=== PATIENT | female | born 1985 | race Caucasian/White ===

== ENCOUNTER 2016-12-19 19:40 | Inpatient (IN) | payer OTHER ==
[~2016-12-19] VITALS: Ht 152.4 cm; Wt 55.8 kg
--- NOTE | ~2016-12-19 | P ---
[facility] [place] [address] PROCEDURE REPORT Name: SHIKHA MO Room #: 409-P [facility] IN M.R.#: [id number] Admission: 12/20/16 Attend Phys: Gael Mcmahan Discharge: 12/22/16 Date of : 81 Report #: [id number] THIS REPORT FOR: //name// CC: [facility] physician/PCP Cesario Hall BRIEF HISTORY: The patient is a 31-year-old woman, who presented to [facility] with 6 weeks of abdominal pain. She reports a 25-pound weight loss. She describes severe epigastric pain. She said she cannot eat. She states food sticks and hangs up. It is not clear to me whether this is dysphagia or gastroparesis-type symptoms. PREOPERATIVE DIAGNOSES: Abdominal pain, nausea, and weight loss. POSTOPERATIVE DIAGNOSES: Moderately severe diffuse gastritis, mostly body and fundus of the stomach. MEDICATIONS: Deep sedation with propofol per anesthesia. SPECIMEN: Biopsies of gastritis. ESTIMATED BLOOD LOSS: 3 mL. PROCEDURE: EGD with biopsy. FINDINGS: Prior to propofol sedation, procedure of upper endoscopy discussed with the patient through a nurse receptionist as well as potential risks and its complications. She indicates she understands and desires to proceed. DESCRIPTION OF PROCEDURE: With the patient in the left lateral decubitus position, the Purkinjei video endoscope was inserted into the cervical esophagus under direct vision without difficulty. Examination of this organ through its entire length revealed normal esophageal mucosa down the squamocolumnar junction. Squamocolumnar junction was inspected and noted to be unremarkable. I did not see any strictures, rings, or mass lesions. A significant hiatus hernia was not seen. Scope was advanced in the stomach, which was examined on end view as well as retroflexed views. First of all, there were no retained solids or liquids in the stomach to suggest gastroparesis or outlet obstruction. Examination of the gastric mucosa revealed it to be intact throughout. However, there was moderately severe gastritis, more so on the fundus and the body of the stomach than in the antrum. There was some mucosal edema. However, the mucosa was intact. I did not see ulcers or erosions. I did not see any bleeding lesions. The pylorus was normal. There was no evidence of pyloric stenosis or obstruction. The duodenal bulb was normal. The duodenal mucosa was normal and there was a normal villous pattern. The scope was advanced to the third portion of the duodenum. Again, the duodenal mucosa was normal. There [facility] [address] [place] [address] PROCEDURE REPORT Name: SHIKHA MO Room #: 409-P DIS IN M.R.#: [id number] Admission: 12/20/16 Attend Phys: Gael Mcmahan Discharge: 12/22/16 Date of : 81 Report #: [id number] was no evidence of obstruction. There was no fluid or solids within the duodenum. In the second portion of the duodenum, we saw normal-appearing duodenal papilla with clear yellow bile streaming from it. At that point, the scope was slowly withdrawn and careful circumferential views were obtained. Biopsies were obtained of the body and fundus of the stomach. Scope was withdrawn. The patient tolerated the procedure well. Subsequently, she was dilated with passage of 50-Korean Hirsch dilator. There was no resistance. DISPOSITION: The patient with symptoms of abdominal pain, inability to eat for 6 weeks as well as possibly dysphagia or gastroparesis-type symptoms. I do see a moderately severe gastritis, mostly in the body and the antrum. If I understand correctly, she had blood work for H. pylori prior to admission, which she reports was negative. We obtained additional biopsies today. I did not see ulcers. History is very impressive; however, labs are very unremarkable. In particular with a 25-pound weight loss and not eating for 6 weeks, she has a serum albumin of 4.7, which would be unusual. However, the CT does reveal edema, which was nonspecific on the CT scan. Potentially, she had some sort of gastroenteritis. She could have acute gastritis and even acute H. pylori gastritis, which may cause symptoms. I did not see evidence of outlet obstruction. I did not see a stricture, but she is empirically dilated due to her complaints. We will follow up on biopsies. Would treat her with a PPI at this point in time. Consider also an ultrasound of the gallbladder if the epigastric pain persists. We will advance diet at this time. <ELECTRONICALLY SIGNED> By: Cesario Campos MD 12/24/16 1228 1432 [id number] Cesario Campos MD /nt
--- NOTE | ~2016-12-19 | HC ---
[facility] [address] [address] CONSULTATION Name: MURRAY KRYSTADEMETRISHIKHA Room #: 409-P [facility] IN M.R.#: [id number] Admission: 12/20/16 Attend Phys: Gael Mcmahan Discharge: 12/22/16 Date of : 81 Report #: [id number] THIS REPORT FOR: //name// CC: [facility] physician/PCP Cesario Hall CONSULTATION REASON FOR CONSULTATION: This is a 31-year-old woman with abdominal pain and 25-pound weight loss over the past 6 weeks. HISTORY OF PRESENT ILLNESS: The patient speaks Irish, but I converse with her through a close family friend who translated for her. She reports that she developed epigastric pain in the past 6 weeks, it has progressively got worse. She also feels like her food goes down, but it sticks, it does not go anywhere. She has not had vomiting. She does report some nausea. She did not any fever or chills. She has seen some sort of clinic. They have related that test for H. pylori was negative. She denies use of nonsteroidals. She was given Prevacid, but it did not help. Her bowel movements have been regular, she has not had bloody stools. She presented to the Emergency Room due to persistent symptoms. A CT scan of the abdomen and pelvis was done and there is nonspecific edema noted. No specific abnormalities were identified. Laboratory studies were obtained, white count 8, hemoglobin 15.3, and platelet count . Chemistry revealed normal electrolytes. Creatinine 0.8, BUN of 12, and liver function studies were normal. Interestingly, albumin was 4.7 in spite of reported weight loss. Serum test was negative. PAST MEDICAL HISTORY: She reports she is otherwise in good health. PAST SURGICAL HISTORY: and tubal ligation. MEDICATIONS: Prevacid, nonsteroidals. ALLERGIES: No known drug allergies. FAMILY HISTORY: Father had colon cancer when he was 60. REVIEW OF SYSTEMS: She reports weight loss only. No fever or chills. PULMONARY: No cough, pneumonia or tuberculosis. CARDIOVASCULAR: No chest pain, chest tightness. GASTROINTESTINAL: As noted above, no rectal bleeding, no change in bowel habits. PHYSICAL EXAMINATION: [facility] [address] [place] [address] CONSULTATION Name: SHIKHA MO Room #: 409-P [facility] IN M.R.#: [id number] Admission: 12/20/16 Attend Phys: Gael Mcmahan Discharge: 12/22/16 Date of : 81 Report #: [id number] GENERAL: Well-developed, well-nourished, pleasant woman who is awake, alert and oriented, no acute distress. VITAL SIGNS: Blood pressure 125/83 and pulse of 96. HEENT: Anicteric. Pupils are equal and round. Oropharynx is clear. NECK: Supple. CHEST: Clear. HEART: Regular rate and rhythm, normal S1 and S2. ABDOMEN: Normal bowel sounds, soft, and nontender without hepatosplenomegaly or masses. Specifically, there is no epigastric tenderness, which reports her pain. RECTAL: Not done. EXTREMITIES: Without cyanosis, clubbing, or edema. ASSESSMENT: 1. Epigastric pain. 2. Nausea. 3. A 25-pound weight loss. 4. Questionable dysphagia. 5. Mild ascites noted on CT. PLAN: EGD. <ELECTRONICALLY SIGNED> By: Cesario Campos MD 12/24/16 1228 1415 2213 Cesario Campos MD /nt
--- NOTE | ~2016-12-19 | HC ---
[facility] [place] [address] CONSULTATION Name: SHIKHA MO Room #: 409-P ADM IN M.R.#: [id number] Admission: 12/20/16 Attend Phys: Gael Mcmahan Discharge: Date of : 81 Report #: [id number] THIS REPORT FOR: //name// CC: [facility] physician/PCP Cesario Hall DATE OF SERVICE: 12/21/2016 ATTENDING PHYSICIAN: Dr. Mcmahan. REASON FOR CONSULTATION: Abdominal pain. HISTORY OF PRESENT ILLNESS: This is a 31-year-old female patient who has had difficulty with postprandial right upper quadrant abdominal pain and nausea with significant weight loss of 25 pounds over the past 6 weeks. She denies fever or chills. She underwent a CT of the abdomen and pelvis which showed ascites with no free intraperitoneal air or other acute findings, debris versus tiny noncalcified stones were seen within the gallbladder. GI was consulted and the patient underwent an EGD, which revealed moderate to severe gastritis. The patient underwent Hirsch dilation as well. A PIPIDA scan was performed yesterday, which revealed a 9% gallbladder ejection fraction. The patient reports significant reproduction of her symptoms with the study. I have been asked to see her for further evaluation and treatment. PAST MEDICAL HISTORY: Denies. PAST SURGICAL HISTORY: times 1. MEDICATIONS: No routine medications; please see the electronic medical record for lifting of the patient's current medications. ALLERGIES: No known drug allergies. FAMILY HISTORY: Significant for hypertension and diabetes. Her father was diagnosed with colon cancer at 60 years old. SOCIAL HISTORY: The patient denies use of tobacco, alcohol or illicit drugs. She is and accompanied by her /significant other. She has three children. 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 REVIEW OF SYSTEMS: As per history of present illness. In addition: GENERAL: The patient denies fever or chills. Reports unintentional weight loss of 25 pounds. HEENT: Denies changes in taste, vision, hearing, or smell. [facility] [address] [place] [address] CONSULTATION Name: SHIKHA MO Room #: 409-P [facility] IN M.R.#: [id number] Admission: 12/20/16 Attend Phys: Gael Mcmahan Discharge: Date of : 81 Report #: [id number] RESPIRATORY: Denies shortness of breath, COPD or asthma. CARDIOVASCULAR: Denies palpitations. Denies edema. GASTROINTESTINAL: As per history of present illness. Denies bright red blood per rectum. GENITOURINARY: Denies dysuria, urgency, increased urinary frequency or hematuria. MUSCULOSKELETAL: Denies myalgia, arthralgia or arthritis. NEUROLOGIC: Denies headaches, numbness or tingling. PSYCHIATRIC: Denies depression, anxiety or suicidal ideations. SKIN AND INTEGUMENTARY: Denies new skin lesions, rashes, or moles. ENDOCRINE: Denies polydipsia, polyuria, heat or cold intolerance. HEMATOLOGIC: Denies easy bleeding, bruising or anemia. All other review of systems is negative. PHYSICAL EXAMINATION: VITAL SIGNS: Temperature 36.8 degrees Celsius, blood pressure 94/59, pulse 70, respirations 18. GENERAL: This is a well-developed, well-nourished, healthy appearing 31-year-old female patient in no acute distress. HEENT: Atraumatic, normocephalic with moist mucosal membranes. She has no scleral icterus. NECK: Supple, no appreciable lymphadenopathy. Trachea is midline. CHEST: Clear bilaterally. No crackles or wheezes. CARDIOVASCULAR: Regular rate and rhythm. ABDOMEN: Soft and nondistended with minimal tenderness to palpation in the right upper quadrant. She has a negative Hartman's sign, no rebound or guarding. No palpable masses, no appreciable hepatosplenomegaly. No appreciable hernias. GENITOURINARY: Normal external female genitalia. EXTREMITIES: No clubbing, cyanosis or edema. NEUROLOGIC: Cranial nerves 2-12 grossly intact. PSYCHIATRIC: Normal mood and affect. SKIN AND INTEGUMENTARY: No acute inflammatory changes, rashes, lesions or jaundice is present. LABORATORY DATA: CBC shows a white blood cell count of 8.0, hemoglobin 15.3, hematocrit 44.0 and platelets 208 on 12/19/2016. Her electrolytes show sodium of 138, potassium 3.6, chloride 103, CO2 of 22, BUN 12, creatinine 0.8, and glucose 96. Her liver function tests were also normal as was her lipase on 12/19/2016. Urinalysis showed trace ketones, trace blood and TB tests are pending. RADIOLOGIC STUDIES: CT and PIPIDA scan findings are as noted above. IMPRESSION AND PLAN: This is a 31-year-old female patient with postprandial right upper quadrant abdominal pain and nausea with a 25-pound weight loss over [address] [address] CONSULTATION Name: SHIKHA MO Room #: 409-P ADM IN M.R.#: [id number] Admission: 12/20/16 Attend Phys: Gael Mcmahan Discharge: Date of : 81 Report #: [id number] the past 6 weeks. She has biliary dyskinesia as evidence by her PIPIDA scan. In addition to this, she had significant reproduction of her symptoms. She would benefit from cholecystectomy. We discussed the pathophysiology and natural history of biliary disease as well as the treatment alternatives and surgical options. The patient will be scheduled for laparoscopic cholecystectomy at the next earliest availability. She understands the risks, benefits, and expectations of the operation. Conversation with the patient was undertaken through her significant other who translated the discussion. I sincerely appreciate the opportunity to participate in the care of this patient and will leave further recommendations and orders in the electronic medical record as appropriate. <ELECTRONICALLY SIGNED> By: Mega Huang MD, FACS 12/22/16 0735 1150 [id number] Mega Huang MD, FACS /nt
--- NOTE | ~2016-12-19 | EKG ---
[place] [address] [facility] [place] [address] ELECTROCARDIOGRAM REPORT Name: SHIKHA MO Room #: 409-P [facility]..#: [id number] Admission: 12/19/16 Attend Phys: Sixto Hall MD Discharge: Date of : 81 Report #: [id number] THIS REPORT FOR: //name// [facility] ED Test Date: 2016-12-19 Test Time: 20:21:48 Pat Name: SHIKHA FARMER Department: Room: 409 Gender: F [employer] Mechanical: SUJIT : 1985 Requested By: Moe Soto Order Number: [id number] MD: Fernando Alva Measurements Intervals [place] Rate: 77 P: 80 FL: 118 QRS: 83 QRSD: 100 T: 64 QT: 423 QTc: 479 Interpretive Statements Sinus rhythm No significant abnormality No previous ECG available for comparison Electronically Signed On 12-20-2016 9:03:50 CDT by Fernando Alva [email or web address] <ELECTRONICALLY SIGNED> By: Fernando Alva MD, [facility] 12/20/16902 20 20 Fernando Alva MD, FACC /EPI
--- NOTE | ~2016-12-19 | S ---
[facility] [place] [address] SURGICAL PATH RPT PROCEDURE Name: SHIKHA MO Room #: 409-P DIS IN M.R.#: [id number] Admission: 12/20/16 Date of : 81 Discharge: 12/22/16 Report #: [id number] Path Case #: [id number] PATHOLOGY REPORT COLLECTION DATE: 12/21/2016 RECEIVED DATE: 12/21/2016 SUBMITTING PHYS: Dr. Mega Huang OTHER PHYS: Dr. Sixto Campos SPECIMEN(S) RECEIVED: A.Gallbladder * * * * * * * * * * * * FINAL DIAGNOSIS: A. "Gallbladder", cholecystectomy: - Mild chronic cholecystitis. - Lymph node with hyperplasia. (1 node) (CLW; 12/23/16) PATHOLOGIST: Elida Zavaleta M.D. REPORT ELECTRONICALLY SIGNED BY: Elida Zavaleta M.D. DATE/TIME: 12/23/2016 21:55 * * * * * * * * * * * * GROSS PATHOLOGY: Received in formalin labeled "Shikha Mo, gallbladder," is an explanted 2 x 2.4 x 1.2 cm, previously opened gallbladder with wrinkled, shiny, pale, bluepale green serosal surfaces. The gallbladder is opened to show a tangreen, velvety, bile-stained mucosa and an average wall thickness of 0.1 cm. Calculi are not present and no masses are noted grossly. Neon Glass Bender sections from the body and fundus are submitted along with the proximal margin in cassette A1. (SNA; 12/22/2016) CLINICAL HISTORY: Cholecystitis INITIAL CPT CODE(S): A; 94142 Professional services performed by [facility] at [facility] [address] [place] [address] [facility] [address] [place] [address] SURGICAL PATH RPT PROCEDURE Name: TERRI CHAPARROSHIKHA MOSQUERA Room #: 409-P DIS IN M.R.#: [id number] Admission: 12/20/16 Date of : 81 Discharge: 12/22/16 Report #: [id number] Path Case #: [id number] Technical services performed by [facility] at [address] [place] [address], [facility] [place] [facility] [address] [address]. [place] [address] PHONE: [phone] DIRECTOR: Saw Johnston M.D. * * * END OF REPORT * * *
--- NOTE | ~2016-12-19 | O ---
[facility] [place] [address] OPERATIVE REPORT Name: TERRI FARMERSHIKHA Room #: 409-P ADM IN M.R.#: [id number] Admission: 12/20/16 Attend Phys: Sixto Hall MD Discharge: Date of : 81 Report #: [id number] THIS REPORT FOR: //name// CC: [facility] physician/PCP Cesario Hall DATE OF SERVICE: 12/21/2016 SURGEON: Mega Huang MD. PROFESSIONAL SERVICES CONSULTANT: RAMIRO Ferrari. PREOPERATIVE DIAGNOSIS: Biliary colic with dyskinesia. POSTOPERATIVE DIAGNOSES: 1. Biliary colic with dyskinesia. 2. Chronic cholecystitis. PROCEDURE: Laparoscopic cholecystectomy with intraoperative cholangiogram. ANESTHESIA: General endotracheal anesthesia and local anesthetic. ESTIMATED BLOOD LOSS: 5 mL. SPECIMEN: Gallbladder. COMPLICATIONS: None appreciated. INDICATIONS FOR PROCEDURE: This is a 31-year-old female patient with a 6-week history of postprandial right upper quadrant abdominal pain and nausea with a 25-pound weight loss. Her imaging studies have been negative other than a PIPIDA scan showing a 9% ejection fraction. She presents now for laparoscopic cholecystectomy with cholangiogram. OPERATIVE FINDINGS: Upon entrance into the abdominal cavity, the liver, stomach, small bowel, and colon in the surrounding area appeared otherwise normal. The gallbladder itself did not appear to be acutely inflamed. Chronic inflammatory changes were present with omental adhesions to the gallbladder. The critical view consisting of the cystic artery, cystic duct, and lower edge of the gallbladder forming a window through which the liver was visible was seen prior to clipping the cystic duct for cholangiogram. Cholangiogram showed contrast within the entire biliary tree with no dilatation, and no filling defects. Contrast flowed freely into the duodenal sweep. At the conclusion of the operation, three clips remained on the cystic duct stump. No other significant intra-abdominal pathology was identified. The gallbladder was [address] [address] OPERATIVE REPORT Name: TERRI FARMERSHIKHA Room #: 409-P ADM IN .R.#: [id number] Admission: 12/20/16 Attend Phys: Sixto Hall MD Discharge: Date of : 81 Report #: [id number] opened on the backtable and chronic inflammatory changes were seen. No gallstones were present. DESCRIPTION OF PROCEDURE IN DETAIL: After the benefits and risks of the procedure were explained to the patient which include but are not limited to risks of bleeding, infection, injury to the biliary tree, injury to adjacent organs, risk of DVT, pulmonary embolus, postoperative pain and postoperative expectations informed consent was obtained. The patient was identified in the preoperative holding area. The patient was then given IV antibiotics as documented in the chart to comply with the SCIP protocol. The patient was taken to the operating room and was placed in the supine position. The patient was given IV sedation and was intubated without incident. A time-out was performed to correctly identify the patient and procedure. SCDs were placed on the patient's bilateral lower extremities. The patient's abdomen was then prepped and draped in the standard sterile fashion with ChloraPrep. Local anesthetic was infiltrated into the skin and subcutaneous tissue. A periumbilical incision was made with a #15 blade scalpel. The 11-mm Visiport was then placed intraperitoneally with the 10-mm 0-degree angled laparoscope. After confirmation of placement within the peritoneal cavity, the scope was changed to a 10-mm 30 degree angled laparoscope and pneumoperitoneum was achieved with insufflation of carbon dioxide. The patient was placed in the reverse Trendelenburg position, rotated to the patient's left. A subxiphoid 5 mm and right subcostal 5 mm ports times 2 were placed under direct visualization after local anesthetic was infiltrated into the skin and subcutaneous tissue and appropriately sized incisions were made. Operative findings are as noted above. The dome of the gallbladder was retracted in a cephalad direction. The gallbladder peritoneum was scored medially and laterally after takedown of the adhesions to the gallbladder. Dissection was carried out around the cystic artery and cystic duct to identify each structure as entering directly into the gallbladder. The critical view as described above was seen. A Hemoclip was then placed on the cystic duct at its junction with the gallbladder. A ductotomy was made and the cholangiocatheter was passed into the cystic duct. A clip was placed, contrast was then injected and cholangiogram findings are as noted above. The cholangiocatheter was then removed and the cystic duct was triply clipped distal to the ductotomy. The duct was divided at the ductotomy site with the ultrasonic scalpel. The cystic artery was then divided with the ultrasonic scalpel as well. The gallbladder was then dissected off the liver bed with and after fully removing the gallbladder, it was placed in an Endopouch and removed through the periumbilical port site. The abdominal cavity was then reentered. Other operative findings are as noted above. The liver bed was made hemostatic with electrocautery. After ensuring final hemostasis and ensuring that the clips were secure, the periumbilical port site fascial opening was closed with a simple interrupted 0 PDS suture under direct visualization using the Gigi Cintron laparoscopic fascial [address] [address] OPERATIVE REPORT Name: SHIKHA MO Room #: 409-P [facility] IN M.R.#: [id number] Admission: 12/20/16 Attend Phys: Sixto Hall MD Discharge: Date of : 81 Report #: [id number] closure device. The ports were removed and the abdominal cavity was desufflated. The fascial suture had been tied under direct visualization to ensure no incorporation of intraabdominal content. Interrupted subcuticular 4-0 Monocryl sutures and Dermabond were used to close the skin. The patient tolerated the procedure well. The patient was awakened, extubated and taken to the recovery room in stable condition with no apparent intraoperative complications. <ELECTRONICALLY SIGNED> By: Mega Huang MD, FACS 12/21/16 1609 1516 1554 Mega Huang MD, FACS /nt
--- NOTE | ~2016-12-19 | S ---
[facility] [place] [address] SURGICAL PATH RPT PROCEDURE Name: TERRI HILLSHIKHA GALEANA Room #: 409-P DIS IN M.R.#: [id number] Admission: 12/20/16 Date of : 81 Discharge: 12/22/16 Report #: [id number] Path Case #: [id number] PATHOLOGY REPORT COLLECTION DATE: 12/20/2016 RECEIVED DATE: 12/21/2016 SUBMITTING PHYS: Dr. Cesario Campos OTHER PHYS: Dr. Sixto Hall SPECIMEN(S) RECEIVED: A.Gastritis * * * * * * * * * * * * FINAL DIAGNOSIS: Gastric mucosa, gastritis, endoscopic biopsy: - Moderate active gastritis along with features of reactive gastropathy. - Negative for intestinal metaplasia or atrophy. - Negative for Helicobacter pylori. COMMENT: Helicobacter pylori immunohistochemical stain performed on block A1 - negative. An intensive search for Helicobacter pylori-like organisms is negative. Absence of such organisms does not entirely exclude the possibility and may be due to sampling or prior treatment. Other possible etiologies may include chemical gastritis, autoimmune gastritis, gastritis associated with inflammatory bowel disease. Please correlate with clinical, endoscopic, and microbiological studies if clinically indicated. PATHOLOGIST: Eloina Ware M.D. REPORT ELECTRONICALLY SIGNED BY: Eloina Ware M.D. DATE/TIME: 12/22/2016 17:10 * * * * * * * * * * * * GROSS PATHOLOGY: Received in formalin labeled "Terri BarrettShikha villagran, gastritis r/o H. pylori," are 7 segments of chen soft tissue measuring 3.0 x 0.4 x 0.3 cm in aggregate dimensions and ranging from 0.2 to 0.7 cm in maximum dimension. The specimen is submitted entirely in cassette A1. (HERIBERTO; 12/21/2016) CLINICAL HISTORY: Abdominal pain [facility] [address] [address] SURGICAL PATH RPT PROCEDURE Name: TERRI BARRETTSHIKHA VILLAGRAN Room #: 409-P DIS IN M.R.#: [id number] Admission: 12/20/16 Date of : 81 Discharge: 12/22/16 Report #: [id number] Path Case #: [id number] INITIAL CPT CODE(S): A; 18097, 77662 Professional services performed by [facility] at [address] , [place] [address] Technical services performed by [facility] at [address] [place] [address], [place] [address]. [facility] [address] [place] [address] PHONE: [phone] DIRECTOR: Saw Johnston M.D. * * * END OF REPORT * * *
[2016-12-19 19:48] VITALS: BP 147/90
[2016-12-19] MEDS ORDERED: OMEPRAZOLE 20 M20 M1 PO (20:05)
[2016-12-19 20:18] LABS: URINE BILIRUBIN NEGATIVE (Negative); URINE BLOOD TRACE (Negative); URINE COLOR YELLOW; URINE GLUCOSE-RANDOM* NEGATIVE (Negative); URINE KETONES TRACE (Negative); URINE LEUKOCYTES-REFLEX NEGATIVE (Negative); URINE PROTEIN (DIPSTICK) NEGATIVE (Negative); URINE SPECIFIC GRAVITY <= 1.005 (1.003-1.035); URINE UROBILINOGEN 0.2 E.U./dl (0.2-1.0)
[2016-12-19 20:21] LABS: ABSOLUTE NEUTROPHILS 5.3 thou/uL (1.4-8.2); BASOPHILS 0.5 % (0.0-2.0); EOSINOPHILS 0.5 % (0.0-3.0); HEMOGLOBIN 15.3 gm/dL (12.0-15.0); LYMPHOCYTES 25.5 % (24.0-44.0); MCH 29.9 pg (26.0-34.0); MCHC 34.7 g/dL (28.0-37.0); MCV 86.1 fL (80.0-100.0); MONOCYTES 6.6 % (1.0-8.0); PLATELET COUNT 208 thou/uL (150-400); POLYS 66.9 % (36.0-66.0); RBC 5.11 mil/uL (4.20-5.00); RDW 13.3 % (10.5-14.5)
[2016-12-19 20:25] LABS: MANUAL DIFF NO
[2016-12-19 20:32] LABS: ANION GAP 13 mmol/L (7-16); BUN 12 mg/dL (7-18); CALCIUM 9.3 mg/dL (8.5-10.1); CHLORIDE 103 mmol/L (98-107); CO2 22 mmol/L (21-32); CREATININE 0.8 mg/dL (0.6-1.0); GLUCOSE 96 mg/dL (74-106); POTASSIUM 3.6 mmol/L (3.5-5.1); SODIUM 138 mmol/L (136-145)
[2016-12-19 20:39] LABS: ALBUMIN 4.7 g/dL (3.4-5.0); ALKALINE PHOSPHATASE 84 U/L (46-116); SGOT 21 U/L (15-37); SGPT 22 U/L (30-65); TOTAL BILIRUBIN 0.8 mg/dL (<0.1-1.0); TOTAL PROTEIN 8.1 g/dL (6.4-8.2); TROPONIN-I < 0.04 ng/mL (<0.04-0.07)
[2016-12-19 23:08] VITALS: BP 117/67
[2016-12-19 23:25] VITALS: BP 118/75
[2016-12-20 06:13] VITALS: BP 124/71
[2016-12-20 08:25] VITALS: BP 125/83
[2016-12-20 15:47] VITALS: BP 105/67
[2016-12-20 18:30] VITALS: BP 127/88
[2016-12-21] VITALS (8 sets, daily range): BP systolic 94–120; BP diastolic 56–75
[2016-12-22 03:44] VITALS: BP 104/56
[2016-12-22 08:57] VITALS: BP 108/57
[2016-12-22] MEDS ORDERED: PERCOCET PO (11:59)
[2016-12-24 09:41] LABS: NIL (NEGATIVE) CONTROL SPOT CT 0; PANEL A SPOT CT 1; PANEL B SPOT CT 1; T-SPOT.TB Negative
[2016-12-24 09:42] LABS: POSITIVE CONTROL SPOT COUNT > 20
== END 2016-12-22 12:19 | disposition home or self-care (01) | DRG 418 ==
LOC: ER 19:40 → EROBS 22:35 → 4N 23:09
PROVIDERS: Emergency Medicine; Hospitalist
PROC: 0DB68ZX Excision of Stomach, Via Natural or Artificial Opening Endoscopic, Diagnostic (ICD-10-PCS; principal; 2016-12-20)
PROC: 0D754ZZ Dilation of Esophagus, Percutaneous Endoscopic Approach (ICD-10-PCS; 2016-12-20)
PROC: BF101ZZ Fluoroscopy of Bile Ducts using Low Osmolar Contrast (ICD-10-PCS; 2016-12-21)
PROC: 0FT44ZZ Resection of Gallbladder, Percutaneous Endoscopic Approach (ICD-10-PCS; 2016-12-21)
DX: K82.8 Other specified diseases of gallbladder (principal); K80.44 Calculus of bile duct with chronic cholecystitis without obstruction; R18.8 Other ascites; K29.70 Gastritis, unspecified, without bleeding; K22.2 Esophageal obstruction; K21.9 Gastro-esophageal reflux disease without esophagitis; R13.10 Dysphagia, unspecified; R63.4 Abnormal weight loss; Z68.24 Body mass index [BMI] 24.0-24.9, adult; Z82.49 Family history of ischemic heart disease and other diseases of the circulatory system; Z83.3 Family history of diabetes mellitus; Z80.0 Family history of malignant neoplasm of digestive organs; Z79.899 Other long term (current) drug therapy
CPT/HCPCS: 10091; 50010; 50101; 50249; 50411; 50555; 50558; 50962; 51489; 51975; 52265; 52266; 53307; 54022; 54118; 55245; 55317; 56462; 56525; 56526; 62110; 62900; 70005